=== PATIENT | female | born 1995 | race Hispanic/Latino ===

== ENCOUNTER 2018-03-08 11:07 | Emergency (ER) | payer OTHER | END 2018-03-08 12:16 | disposition home or self-care (01) | LOC: ERS 11:07 | DX: O9A.212 Injury, poisoning and certain other consequences of external causes complicating pregnancy, second trimester (principal); S30.1XXA Contusion of abdominal wall, initial encounter; Z3A.19 19 weeks gestation of pregnancy; X50.0XXA Overexertion from strenuous movement or load, initial encounter; Y92.239 Unspecified place in hospital as the place of occurrence of the external cause | CPT/HCPCS: 99283 ==

== ENCOUNTER 2018-06-27 15:23 | Inpatient (IN) | payer OTHER ==
[~2018-06-27 15:23] MED LIST: Bupivacaine/Epinephrine 0.25% 30 ML VIAL ONE
[2018-06-27 15:55] VITALS: BMI 36.0
[2018-06-27 16:09] LABS: #Basophils 0.1 thou/uL (0.0-0.2); #Eosinphils 0.1 thou/uL (0.0-0.7); #Lymphocytes 3.4 thou/uL (1.20-3.40); #Monocytes 0.7 thou/uL (0.11-0.59); #Neutrophils 7.3 thou/uL (1.40-6.50); %Basophils 0.8 % (0.0-1.0); %Eosinophils 1.3 % (0.0-10.0); %Lymphocytes 29.4 % (21.0-51.0); %Monocytes 6.1 % (0.0-10.0); %Neutrophils 62.5 % (42.0-75.0); Hemoglobin 12.6 g/dL (12.0-16.0); Mean Corpuscular HGB CONC 33.5 g/dL (32.0-36.0); Mean Corpuscular Hemoglobin 29.6 pg (27.0-31.0); Mean Corpuscular Volume 88.4 fL (78.0-98.0); Mean Platelet Volume 8.9 fL (7.4-10.4); Platelet Count 298 thou/uL (130-400); RBC Distribution Width 12.6 % (11.5-14.5); Red Blood Cell (RBC) Count 4.24 mill/uL (4.20-5.40); White Blood Cell (WBC) Count 11.6 thou/uL (4.8-10.8)
[2018-06-27 16:19] LABS: Amphetamine Not Detected (NotDetected); Barbiturates Screen Not Detected (NotDetected); Benzodiazepine Screen Not Detected (NotDetected); Cocaine Metabolite Screen Not Detected (NotDetected); Medtox Control Line Valid? VALID (VALID); Medtox Reader # READER 1; Methadone Not Detected (NotDetected); Methamphetamine Not Detected (NotDetected); Opiate Screen Not Detected (NotDetected); Oxycodone Screen Not Detected (NotDetected); Phencyclidine (PCP) Not Detected (NotDetected); THC/Cannabinoid Screen Not Detected (NotDetected); Tricyclic Screen Not Detected (NotDetected)
[2018-06-27 16:24] LABS: AST (SGOT) 116 U/L (5-34); Anion Gap 15 mmol/L (10-20); BUN (Urea Nitrogen) 10 mg/dL (7.0-18.7); Calc. Creatinine Clearance 162 mL/min (70-130); Calcium 9.6 mg/dL (7.8-10.44); Carbon Dioxide 17 mmol/L (22-29); Chloride 109 mmol/L (98-107); Estimated GFR-MDRD Greater than 90; Glucose 70 mg/dL (70-105); Potassium 4.3 mmol/L (3.5-5.1); Sodium 137 mmol/L (136-145)
[2018-06-27 16:27] LABS: Creatinine, Urine 29.7 mg/dL (47-110)
[2018-06-27] MEDS ORDERED: NS / Oxytocin 40 units/1000ml 1,000 ML IV PRN (17:24)
[2018-06-27] MEDS ORDERED: Zolpidem Tartrate 5 MG TAB PO PRN (17:24)
[2018-06-27] MEDS ORDERED: Lidocaine 1% (PF) 30 ML VIAL SC PRN (17:24)
[2018-06-27] MEDS ORDERED: Ondansetron HCl/PF 4 MG/2 ML Vial IVP PRN (17:24)
[2018-06-27] MEDS ORDERED: Promethazine HCl 25 MG/ML VIAL IM PRN (17:24)
[2018-06-27] MEDS ORDERED: Calcium Gluc 4.6 MEQ/10 ML (100 MG/ML) SLOW IVP PRN (17:24)
--- NOTE | 2018-06-27 17:37 | HP ---
DATE OF ADMISSION: 06/27/2018 REASON FOR ADMISSION: Preeclampsia at 35 weeks' gestation. HISTORY OF PRESENT ILLNESS: Ms. Thomas is a 22-year-old 2, para 1 with an EDC of 07/31/2018 placing her at 35 weeks and 1 day. She was noted to have blood pressures to 150s/100s at Dr. Mathis' s office. She was sent over here for further evaluation. Laboratory evaluation reveals elevated AST at 116 and a protein to creatinine ratio of greater than 0.9. Blood pressures are much better than were noted in the office on presentation to labor and delivery. OBSTETRICS AND GYNECOLOGIC HISTORY: x1 with induction for preeclampsia. Blood type O positive, antibody negative, Pap negative, rubella immune, VDRL nonreactive. Hepatitis B and GC chlamydia nega tive. 50-gram within normal limits. Group B strep pending. PAST MEDICAL HISTORY: Denies. PAST SURGICAL HISTORY: Denies. ALLERGIES: Denies. MEDICATIONS: vitamins. SOCIAL HISTORY: Denies tobacco, alcohol, or IV drug abuse. FAMILY HISTORY: Noncontributory. REVIEW OF SYSTEMS: Noncontributory. PHYSICAL EXAMINATION: GENERAL: female in no acute distress. Denies headache, blurred vision. VITAL SIGNS: Current blood pressure is 128/82, pulse 85, respirations 18, temperature 97.6. HEENT: Within normal limits. LUNGS: Clear to auscultation bilaterally. HEART: Regular rhythm. BREASTS: No masses bilaterally. ABDOMEN: Soft, nontender. Fundal height 35 cm. FHTs 130s to 140s. PELVIC: Vulva without lesions. Vagina without discharge. Cervix is 1 to 2, 50, -2, cephalic by Dr. Mathis in the office. EXTREMITIES: The patient has 1+ edema, 1+ DTRs. No clonus. No CVA tenderness. LABORATORY STUDIES: Hematocrit is 29.6%, platelet count 298. Creatinine is 0.76, AST is 116, random urine protein is 28, urine creatinine is 29.7. Urine drug screen is negative. IMPRESSION: 35 weeks' gestation with elevated blood pressures in the office, now improved on diaz re st, but with severe criteria by liver enzyme assay. PLAN: 1. Admission. 2. Betamethasone secondary to current ACOG recommendations and 35.1 weeks' gestation. 3. Repeat AST, base met, and hemogram in approximately 12 hours. 4. Anticipate induction of labor at 48 hours post-betamethasone or earlier if blood pressures or wor sening laboratory indices indicate worsening severe preeclampsia worrisome for maternal or morb idity. Care plan discussed with Dr. Mathis.
[2018-06-27] MEDS: Betamet Acet/Betamet Na Ph 30 MG/5 ML VIAL IM SCH (17:42)
[2018-06-27 18:23] LABS: HBSAg Index 0.18 S/CO (0-0.99); Hep B Surf Ag Non-Reactive S/CO (NonReactive); Syphilis Antibody Nonreactive (Nonreactive); Syphilis Antibody Index 0.05 S/CO (<1.00 Non-Reactive)
[2018-06-28] MEDS ORDERED: Calcium Carbonate 500 MG ChewTAB PO PRN (00:49)
[2018-06-28 05:44] LABS: Hemoglobin 12.1 g/dL (12.0-16.0); Mean Corpuscular HGB CONC 33.4 g/dL (32.0-36.0); Mean Corpuscular Hemoglobin 29.4 pg (27.0-31.0); Mean Platelet Volume 8.9 fL (7.4-10.4); Platelet Count 303 thou/uL (130-400); RBC Distribution Width 12.5 % (11.5-14.5); Red Blood Cell (RBC) Count 4.11 mill/uL (4.20-5.40); White Blood Cell (WBC) Count 14.2 thou/uL (4.8-10.8)
--- NOTE | 2018-06-28 07:54 | PDOC.EVN ---
Event Note - Event Note Event Note: S:No PIH symptoms. Baby is active. Discussed indication for delivery due to increasing AST. O:128-137/79-90 FHT'140 ABD soft/non tender A/P:22 y/o at 35weeks and 2 days. AST increasing confirming severe criteria. Has received one dose of betamethasone and due second this afternoon. Will transfer to L&D for cytotec induction.
[2018-06-28] MEDS ORDERED: Carboprost 250 MCG/ML AMP IM SCH (07:58)
[2018-06-28] MEDS ORDERED: Methylergonovine 0.2 MG/ML VIAL IM PRN (07:58)
[2018-06-28] MEDS ORDERED: Calcium Gluc 4.6 MEQ/10 ML (100 MG/ML) SLOW IVP PRN (07:58)
[2018-06-28] MEDS ORDERED: Acetaminophen/Codeine 30-300mg Tablet PO PRN ×2 (07:58)
[2018-06-28] MEDS ORDERED: NS / Oxytocin 40 units/1000ml 1,000 ML IV PRN (07:58)
[2018-06-28] MEDS ORDERED: Lidocaine 1% (PF) 30 ML VIAL SC PRN (07:58)
[2018-06-28] MEDS ORDERED: NS w/ Oxytocin 10 units 500 ML IV SCH (08:00)
[2018-06-28] MEDS ORDERED: Penicillin G Potassium 5 MILL.UNITS in Sodium Chloride 0.9% 100 ML IVPB SCH (08:00)
[2018-06-28] MEDS ORDERED: Prenatal Vitamin 1 TAB PO SCH (09:00)
[2018-06-28] MEDS: Misoprostol 100 MCG TAB VAG SCH (09:28)
[2018-06-28] MEDS: Penicillin G 2.5 MILL.units 2.5 MILL.UNITS in Premix Bag 1 BAG IVPB SCH (13:40)
[2018-06-28] MEDS ORDERED: Fentanyl 4 mcg/Bup 0.1% Cadd 100 ML ONE (15:05)
[2018-06-28] MEDS: Lactated Ringer's 1,000 ML IV SCH (15:11)
[2018-06-28] MEDS ORDERED: ePHEDrine/0.9% NaCl/PF SYRINGE 50 mg/10 ml SLOW IVP PRN (15:52)
[2018-06-28] MEDS ORDERED: diphenhydrAMINE 50 MG/ML VIAL IVP PRN ×2 (15:52→18:23)
[2018-06-28] MEDS ORDERED: Eucerin (Mineral Oil/Petrolatum,White) 30 gm Jar TOP PRN (15:52)
[2018-06-28] MEDS ORDERED: Ondansetron HCl/PF 4 MG/2 ML Vial IVP PRN ×3 (15:52→18:25)
[2018-06-28] MEDS ORDERED: Promethazine HCl 25 MG/ML VIAL IM PRN ×2 (15:52→18:23)
[2018-06-28] MEDS ORDERED: Naloxone HCl 0.4 mg/ml Vial IVP PRN ×2 (15:52)
[2018-06-28] MEDS ORDERED: Acetaminophen 325 MG TAB PO PRN (15:52)
[2018-06-28] MEDS ORDERED: Lactated Ringer's 500 ML IV PRN (15:52)
[2018-06-28] MEDS ORDERED: Fentanyl 4 mcg/Bupivacaine 0.1% Cassette 100 ML EPIDURAL SCH (16:00)
[2018-06-28] MEDS ORDERED: Communication Order-Pharmacy FS SCH ×2 (16:00→18:30)
[2018-06-28] MEDS ORDERED: Ondansetron HCl/PF 4 MG/2 ML Vial ONE ×2 (16:40→17:03)
[2018-06-28] MEDS ORDERED: PROPOFOL 200 MG/20 ML VIAL ONE (16:40)
[2018-06-28] MEDS ORDERED: ePHEDrine/0.9% NaCl/PF SYRINGE 50 mg/10 ml ONE ×2 (16:40→17:03)
[2018-06-28] MEDS ORDERED: PHENYLEPHRINE-NS 100 MCG/ML 10 ML SYRINGE ONE ×2 (16:40→17:03)
[2018-06-28] MEDS ORDERED: Succinylcholine Chloride 20 MG/ML 10 ml SYRINGE FS ONE ×2 (16:40→17:38)
[2018-06-28] MEDS ORDERED: Glycopyrrolate 0.2 MG/ML 5 ML SYRINGE ONE ×2 (16:40→18:08)
[2018-06-28] MEDS ORDERED: Esmolol 100 MG/10 ML VIAL ONE ×2 (16:40→18:04)
[2018-06-28] MEDS ORDERED: CEFAZOLIN/Water 2 GM/20 ML SYRINGE ONE (16:45)
[2018-06-28] MEDS ORDERED: Bicitra 30 ML UDCUP ONE (16:45)
[2018-06-28] MEDS ORDERED: Bupivacaine 0.5% 10 ML VIAL ONE (16:52)
[2018-06-28] MEDS ORDERED: Bicitra 30 ML UDCUP PO SCH (17:00)
[2018-06-28] MEDS ORDERED: CEFAZOLIN/Water 2 GM/20 ML SYRINGE SLOW IVP SCH (17:00)
[2018-06-28] MEDS ORDERED: Ketorolac Tromethamine 30 MG/ML VIAL ONE (17:03)
[2018-06-28] MEDS ORDERED: Calcium Gluconate 4.6 MEQ in Sodium Chloride 0.9% 100 ML IVPB PRN (17:17)
[2018-06-28] MEDS ORDERED: Adacel (T-DAP) 0.5 ML VIAL IM ONE (17:18)
[2018-06-28] MEDS ORDERED: Lanolin Ointment 7 GM TUBE TOP PRN (17:18)
[2018-06-28] MEDS ORDERED: diphenhydrAMINE 25 MG CAP PO PRN ×2 (17:18→18:23)
[2018-06-28] MEDS ORDERED: Misoprostol 200 MCG TAB PR PRN (17:18)
[2018-06-28] MEDS ORDERED: Simethicone Chewable 80 MG TAB PO PRN (17:18)
[2018-06-28] MEDS ORDERED: Meperidine HCl/PF 25 MG/ML VIAL IM PRN (17:18)
[2018-06-28] MEDS ORDERED: traMADol HCl 50 MG TAB PO PRN ×2 (17:23)
[2018-06-28] MEDS ORDERED: Magnesium Sulfate 20 GM/WATER 500 ML BAG IVPB SCH (17:30)
[2018-06-28] MEDS ORDERED: Lidocaine 2% 10 ML INJ ONE (17:38)
[2018-06-28] MEDS ORDERED: PROPOFOL 20 ML ONE ×2 (17:38→18:05)
[2018-06-28] MEDS ORDERED: Fentanyl 250 MCG/5 ML VIAL ONE (17:40)
[2018-06-28] MEDS ORDERED: Midazolam HCl 2 mg/2 ml Vial ONE (17:47)
[2018-06-28] MEDS ORDERED: Oxytocin 10 UNITS/ML VIAL ONE (17:48)
[2018-06-28] MEDS ORDERED: Fentanyl 100 MCG/2 ML VIAL ONE (17:55)
[2018-06-28] MEDS ORDERED: Zolpidem Tartrate 5 MG TAB PO PRN (18:23)
[2018-06-28] MEDS ORDERED: Naloxone HCl 0.4 mg/ml Vial IV PRN (18:23)
[2018-06-28] MEDS ORDERED: diphenhydrAMINE 50 MG/ML VIAL IM PRN (18:23)
[2018-06-28] MEDS ORDERED: fentaNYL Citrate/PF 2,000 MCG in Sodium Chloride 0.9% 60 ML IV PRN (18:23)
[2018-06-28] MEDS ORDERED: L&D-Morphine 4 MG/ML VIAL SLOW IVP PRN (18:25)
[2018-06-28] MEDS ORDERED: HYDROmorphone 2 MG/ML VIAL SLOW IVP PRN (18:25)
[2018-06-28] MEDS ORDERED: Meperidine HCl/PF 25 MG/ML VIAL SLOW IVP PRN (18:25)
[2018-06-28] MEDS ORDERED: Ketorolac Tromethamine 30 MG/ML VIAL IVP SCH (18:30)
--- NOTE | 2018-06-28 18:56 | CON ---
DATE OF CONSULTATION: 06/28/2018 CONSULTATION This is a patient of Dr. Belinda Mathis. In brief, I was asked to be on standby for this patient's . The patient was being induced [facility] and Dr. Mathis found that the baby's position was transverse oblique. As she was 3-4 cm dilated, the plan by Dr. Mathis was to proceed with a primary . Dr. Shayy Loja with Family Medicine program and Dr. Mathis were the surgeons on this case. I was scrubbed and in the rosaura m, but I was there really as a backup for delivery in case assistance was needed. Dr. Mathis p roceeded to deliver the child by idpesh breech extraction. I had a very minimal role in this procedur e. I assisted with exposure during the breech extraction briefly. For full details, please tu rn to the notes by Dr. Loja and Dr. Mathis.
[2018-06-29] MEDS: Lactated Ringer's 1,000 ML IV SCH ×2 (02:59→15:47)
[2018-06-29] MEDS: Magnesium Sulfate 20 gm/500 ml 20 GM/500 ML BAG IVPB SCH ×2 (03:41→14:29)
[2018-06-29 05:23] LABS: Hemoglobin 9.4 g/dL (12.0-16.0); Mean Corpuscular HGB CONC 33.5 g/dL (32.0-36.0); Mean Corpuscular Hemoglobin 29.6 pg (27.0-31.0); Mean Corpuscular Volume 88.3 fL (78.0-98.0); Mean Platelet Volume 8.9 fL (7.4-10.4); Platelet Count 271 thou/uL (130-400); RBC Distribution Width 12.6 % (11.5-14.5); Red Blood Cell (RBC) Count 3.19 mill/uL (4.20-5.40); White Blood Cell (WBC) Count 18.2 thou/uL (4.8-10.8)
[2018-06-29 05:42] LABS: ALT (SGPT) 171 U/L (8-55); AST (SGOT) 145 U/L (5-34); Albumin 2.6 g/dL (3.5-5.0); Alkaline Phosphatase 123 U/L (40-150); Anion Gap 13 mmol/L (10-20); BUN (Urea Nitrogen) 13 mg/dL (7.0-18.7); Bilirubin, Total 0.5 mg/dL (0.2-1.2); Calc. Creatinine Clearance 160 mL/min (70-130); Calcium 7.1 mg/dL (7.8-10.44); Carbon Dioxide 16 mmol/L (22-29); Chloride 104 mmol/L (98-107); Estimated GFR-MDRD Greater than 90; Globulin 2.9 g/dL (2.4-3.5); Glucose 100 mg/dL (70-105); Potassium 4.1 mmol/L (3.5-5.1); Protein, Total 5.5 g/dL (6.0-8.3); Sodium 129 mmol/L (136-145)
--- NOTE | 2018-06-29 08:07 | PDOC.EVN ---
Event Note - Event Note Event Note: PPD/POD 1 Still on Mag So4 for isolated LFT elevation, now improving. At MD hand-off, discussed eval for other etiologies: ordered hep panal and RUQ sono for comprehensive eval. Off mag today anticipated after 24 hrs (mid afternoon)
[2018-06-29 08:58] LABS: HBCM Index 0.07 S/CO (0-0.79); HBSAg Index 0.19 S/CO (0-0.99); Hep A IgM AB Non-Reactive (NonReactive); Hep A IgM S/CO 0.15 S/CO (0-0.79); Hep B Surf Ag Non-Reactive S/CO (NonReactive); Hep C IgG Ab Non-Reactive (NonReactive); Hep C Index 0.08 S/CO (0-0.79); Hepatitis B Core IGM Abs Non-Reactive (NonReactive)
[2018-06-29] MEDS ORDERED: Prenatal Vitamin 1 TAB PO SCH (09:00)
--- NOTE | 2018-06-29 11:31 | ULT ---
RIGHT UPPER QUADRANT ULTRASOUND: Date: 06/29/18 INDICATION: elevated LFTs. FINDINGS: The liver measured 18.4 cm. No focal hepatic lesion is evident. Gallbladder normal appearing. No sonographic Bruno's sign reported. Common bile duct measures 3.0 mm. Pancreas was poorly evaluated due to overlying bowel gas. The right kidney measures 10.9 x 4.4 x 5.7 cm. IMPRESSION: No acute sonographic abnormalities. POS: TRUDY
--- NOTE | 2018-06-29 13:22 | OP ---
DATE OF PROCEDURE: 06/28/2018 PREOPERATIVE DIAGNOSES: 1. A 22-year-old female, G2, P1 at 35 to 36 weeks' gestation, but severe preeclampsia based on elevated liver enzymes. 2. Oblique lie with hand presentation in labor. POSTOPERATIVE DIAGNOSES: 1. A 22-year-old female, G2, P1 at 35 to 36 weeks' gestation, but severe preeclampsia based on elevated liver enzymes. 2. Oblique lie with hand presentation in labor. PROCEDURE PERFORMED: Primary low transverse section without extension. SURGEON: Belinda Mathis M.D. PLASTIC CARD GRADER CARDROOM: Sivakumar Torres, second year Family Practice Resident. ANESTHESIA: Epidural and general endotracheal anesthesia. QUANTITATIVE BLOOD LOSS: 1025 mL. COMPLICATIONS: None. COUNTS: Correct x2. ANTIBIOTICS: Two grams Ancef on-call to OR. FINDINGS: 1. Male infant with oblique presentation with the cephalic, noted in the right side of mother's pelv is with back up and arm presentation noted and encountered at the hysterotomy incision. Delivered br eech with breech extraction. 2. Normal appearing fallopian tubes, ovaries, and uterus. 3. A male in oblique lie with head in right lower quadrant of the abdomen back up with arm pr esentation. Apgars were initially 1 and 7 and weight was 2560 grams. DISPOSITION: Recovery, then to room, then to LICU for magnesium sulfate prophylaxis. DESCRIPTION OF OPERATIVE PROCEDURE: The patient previously received informed consent and was taken b ack to the operating room. She was placed in the supine position and prepped and draped in usual julieta rile fashion after epidural anesthesia had been dosed. It was noted that it was inadequate and there fore, general endotracheal anesthetic agent was utilized. A Pfannenstiel incision was then made in t he lower abdomen and was carried down the fascia. Fascia was nicked in midline. Fascial incision wa s extended bilaterally using curved Huffman scissors. The rectus fascia was dissected superiorly and in feriorly off the rectus muscle bellies and rectus muscle bellies were divided in midline, and periton eal cavity was entered. A large Que O retractor was then placed. A bladder flap was created. A 2 cm hysterotomy incision was made in the lower uterine segment and this was extended via finger frac tionation. We kept the amniotic bag in situ and explored over the space between the uterus and the a mniotic bag, located the head, tried to manipulate this more towards cephalad. The amniotic ba g was then ruptured and initially a hand was grasped and this was replaced back into the uterus. I s wept over the head down the back of the baby over the rump, and then grabbed the leg and then p ulled the foot out of the hysterotomy incision, which the next leg followed easily. A twisting , turning maneuver at the sacrum and the buttocks area was carried out to deliver the arms easily justyna ng with the maneuver keeping the head flexed by my chef's assistant with easy delivery of the he ad. The mouth and nares and the baby were suctioned, and the cord was doubly clamped and cut and martin ded to the taper printed circuit layout in attendance. Usual cord blood was obtained. Placenta was manually extrac victoria. Uterus was externalized. Uterus curetted of any remaining placental fragments with a dry lapar otomy sponge. Hysterotomy incision was closed with #1 Monocryl suture in running locking fashion. G ood hemostasis was confirmed. The uterus was then replaced in the abdomen. Again, hemostasis of the hysterotomy site was confirmed. Pelvis irrigated and suctioned. The rectus muscle bellies were not ed to be hemostatic. Hysterotomy incision was hemostatic. The fascia was then closed with 0 PDS sut ure x2 in running continuous fashion. Subcutaneous tissue was noted be hemostatic prior to skin appr oximation with irina. Surgery was terminated. There were no anesthetic or surgical complications.
[2018-06-29] MEDS: Betamet Acet/Betamet Na Ph 30 MG/5 ML VIAL IM SCH (17:00)
[2018-06-29] MEDS: Docusate Calcium (SURFAK) 240 MG CAP PO SCH ×2 (17:00→23:11)
[2018-06-29] MEDS: Ketorolac Tromethamine 30 MG/ML VIAL IVP SCH (17:01)
[2018-06-29] MEDS ORDERED: Ondansetron HCl/PF 4 MG/2 ML Vial IVP PRN (21:27)
[2018-06-29] MEDS ORDERED: Bisacodyl 10 MG SUPP PR PRN (21:27)
[2018-06-29] MEDS ORDERED: HYDROcodone/Acetaminophen 5/325 mg Tablet PO PRN (21:27)
[2018-06-29] MEDS ORDERED: Lanolin Ointment 7 GM TUBE TOP PRN (21:27)
[2018-06-29] MEDS ORDERED: Docusate Calcium (SURFAK) 240 MG CAP PO SCH (21:45)
[2018-06-29] MEDS: Ibuprofen 800 MG TAB PO SCH (23:10)
[2018-06-29] MEDS: HYDROcodone/Acetaminophen 5/325 mg Tablet PO PRN (23:31)
[2018-06-29] MEDS: Simethicone Chewable 80 MG TAB PO PRN (23:31)
[2018-06-30] MEDS: HYDROcodone/Acetaminophen 5/325 mg Tablet PO PRN ×3 (04:17→17:07)
[2018-06-30] MEDS: Simethicone Chewable 80 MG TAB PO PRN ×2 (05:59→21:31)
[2018-06-30] MEDS: Ibuprofen 800 MG TAB PO SCH ×3 (05:59→21:31)
[2018-06-30] MEDS: Docusate Calcium (SURFAK) 240 MG CAP PO SCH ×4 (07:43→21:31)
[2018-06-30] MEDS: Ketorolac Tromethamine 30 MG/ML VIAL IVP SCH ×2 (07:43→07:46)
[2018-06-30] MEDS: Lactated Ringer's 1,000 ML IV SCH (07:44)
[2018-06-30] MEDS: Penicillin G 2.5 MILL.units 2.5 MILL.UNITS in Premix Bag 1 BAG IVPB SCH ×3 (07:46→08:32)
[2018-06-30] MEDS: Misoprostol 100 MCG TAB VAG SCH ×3 (07:47→08:32)
--- NOTE | 2018-06-30 08:19 | PRG ---
DATE OF SERVICE: 06/30/2018 PRIMARY OB: Dr. Belinda Mathis HISTORY OF PRESENT ILLNESS: The patient is a 22-year-old who is now postop day #2, status post a brook thomas for malpresentation and preeclampsia. The patient is now postop day #2 status post ma gnesium for seizure prophylaxis and yesterday was sent to the floor for continued care. H er course since yesterday has been uncomplicated. Blood pressures have remained in the normal range. This morning reports that she is tolerating p.o., voiding on her own, having decreased lochia and g ood pain control. PHYSICAL EXAMINATION: VITAL SIGNS: Blood pressure 127/68, temperature 98.5, pulse of 95, respiratory rate of 18, satting 9 8% on room air. GENERAL: She appears to be in no acute distress. She is alert and oriented, cooperative and pleasan t to interact with. HEENT: Head is normocephalic, atraumatic. CHEST: Clear to auscultation bilaterally. ABDOMEN: Fundus is firm. Incision is clean, dry, and intact with irina. EXTREMITIES: Nontender, nonedematous. ASSESSMENT AND PLAN: The patient is a 22-year-old female postop day #2, status post a primary C-sect ion for malpresentation and preeclampsia with severe features. The patient is recovering well. We w ill continue postoperative care today. Anticipate discharge tomorrow.
[2018-06-30] MEDS ORDERED: Adacel (T-DAP) 0.5 ML VIAL IM ONE (09:00)
[2018-06-30] MEDS: Prenatal Vitamin 1 TAB PO SCH (09:33)
[2018-07-01] MEDS: HYDROcodone/Acetaminophen 5/325 mg Tablet PO PRN ×3 (00:14→15:00)
[2018-07-01] MEDS: Ibuprofen 800 MG TAB PO SCH ×2 (06:19→15:00)
--- NOTE | 2018-07-01 06:28 | PDOC.PP ---
Post Progress Note Post Day #: 3 Subjective: States had a DEL CASTILLO yesterday (states migraine HX), but none today. Doroteo po and can ambulate. No photophobia. Passing gas. baby still in NICU for EGA PO intake tolerated: yes Flatus: yes Ambulation: yes Vital Signs (12 hours) Temp Pulse Resp BP BP Pulse Ox 07/01/18 04:00 98.0 F 89 18 130/63 07/01/18 00:08 97.6 F 96 20 115/60 06/30/18 19:53 98.9 F 100 20 130/69 98 Weight Weight 197 lb - Physical Examination General: NAD Cardiovascular: no m/r/g Respiratory: clear to auscultation bilaterally Abdominal: + bowel sounds, lochia, no distention Extremities: negative homans (B) Skin: CS incision dry & intact (irina in place) Neurological: no gross focal deficits Psychiatric: A&Ox3, normal affect Result Diagrams: 06/29/18 05:11 06/29/18 05:11 Additional Labs: Post Labs Blood Type O POSITIVE 06/27/18 17:18 Hep Bs Antigen Non-Reactive S/CO (NonReactive) 06/27/18 17:35 (1) delivery delivered Code(s): O82 - ENCOUNTER FOR DELIVERY WITHOUT INDICATION Status: Acute (2) Elevated liver enzymes Code(s): R74.8 - ABNORMAL LEVELS OF OTHER SERUM ENZYMES Status: Acute - Assessment/Plan POD 3 s/p primary CS with HX elevated LFTs as isolated foindings, s/p MgSo4 for presumed PIH effect. BPs have been normal. Plan: 1. POD 3 today: we will plan on noon formal discharge and then courtesy stay (B& B) as baby still in NICU 2. Last LFTs were downward trending. I have ordered another set today to recheck. Hep panel was negative, RUQ sono was neg 3. BPs wnl 4. Irina out Wednesday next week 5. Home with motrin prn
--- NOTE | 2018-07-01 06:37 | PDOC.EVN ---
Event Note - Event Note Event Note: DISCHARGE NOTE Admission date: 06/27/18 Discharge date: 07/01/18 Principle procedure: Primary LTCS Other procedure: Right upper quadrant ultrasound Other diagnosis: elevated Liver Function tests, NOS COURSE: In brief, the patient was admitted by Dr Mathis and was undergoing a trial of induction with cytotec for abnormal LFTs presumed due to preeclampsia. At 3-4cm , position was noted to have changed from cephalic to oblique. She was delivered by primary CS vis breech after arm presentation through hysterotomy was corrected. , was placed on MgSo4 empirically due to LFT abnormality. LFTs down-trending. Repeat LFTs ordered on day of discharge. No evidence of ileus on day of discharge. Incision C/D/I with irina. Planned discharge on POD 3 with bed and breakfast scheduled. Irina to be removed Wednesday after discharge. Baby was in NICU due to EGA 35 weeks
[2018-07-01 07:42] LABS: ALT (SGPT) 117 U/L (8-55); AST (SGOT) 120 U/L (5-34); Albumin 2.9 g/dL (3.5-5.0); Alkaline Phosphatase 118 U/L (40-150); Bilirubin, Direct 0.2 mg/dL (0.1-0.3); Bilirubin, Total 0.5 mg/dL (0.2-1.2); Protein, Total 5.8 g/dL (6.0-8.3)
--- NOTE | 2018-07-01 07:49 | PDOC.EVN ---
Event Note - Event Note Event Note: Lab check: AM LFTs are down-trending.
[2018-07-01] MEDS: Docusate Calcium (SURFAK) 240 MG CAP PO SCH (09:07)
[2018-07-01] MEDS: Prenatal Vitamin 1 TAB PO SCH (09:08)
[2018-07-01] MEDS: Simethicone Chewable 80 MG TAB PO PRN (09:09)
[2018-07-01 12:49] VITALS: BP 120/61; TEMP 98.5
== END 2018-07-01 16:20 | disposition home or self-care (01) | DRG 787 ==
LOC: L&D/OP 15:23 → L&D 17:33 → 3SW 21:12 → L&D 06-28 08:20 → 3SW 06-29 21:00
PROVIDERS: ADMIT Obstetrics & Gynecology; ATTEND Obstetrics & Gynecology
PROC: 10D00Z1 Extraction of Products of Conception, Low, Open Approach (ICD-10-PCS; principal; 2018-06-28)
PROC: 3E033VJ Introduction of Other Hormone into Peripheral Vein, Percutaneous Approach (ICD-10-PCS; 2018-06-28)
DX: O14.14 Severe pre-eclampsia complicating childbirth (principal); O98.82 Other maternal infectious and parasitic diseases complicating childbirth; Z3A.35 35 weeks gestation of pregnancy; Z37.0 Single live birth; O32.1XX0 Maternal care for breech presentation, not applicable or unspecified; B95.1 Streptococcus, group B, as the cause of diseases classified elsewhere; R79.89 Other specified abnormal findings of blood chemistry; O75.89 Other specified complications of labor and delivery
CPT/HCPCS: 36415; 51702; 59025; 76705; 76815; 80048; 80053; 80074; 80076; 80306; 81003; 82570; 83735; 84156; 84450; 85025; 85027; 86780; 86850; 86900; 86901; 87081; 87340; 88307; 90715; 99285; J0702; J1885; J2250; J2405; J2540; J2590; J2704; J3010; J3475; J3490; J7050

== ENCOUNTER 2018-11-30 08:49 | Emergency (ER) | payer OTHER ==
[2018-11-30 10:11] LABS: #Basophils 0.1 thou/uL (0.0-0.2); #Eosinphils 0.1 thou/uL (0.0-0.7); #Monocytes 0.5 thou/uL (0.11-0.59); #Neutrophils 1.8 thou/uL (1.40-6.50); %Basophils 1.3 % (0.0-1.0); %Eosinophils 1.3 % (0.0-10.0); %Lymphocytes 45.6 % (21.0-51.0); %Monocytes 10.6 % (0.0-10.0); %Neutrophils 41.2 % (42.0-75.0); Hemoglobin 12.8 g/dL (12.0-16.0); Mean Corpuscular HGB CONC 33.2 g/dL (32.0-36.0); Mean Corpuscular Hemoglobin 27.3 pg (27.0-31.0); Mean Corpuscular Volume 82.2 fL (78.0-98.0); Mean Platelet Volume 7.9 fL (7.4-10.4); Platelet Count 369 thou/uL (130-400); RBC Distribution Width 13.9 % (11.5-14.5); Red Blood Cell (RBC) Count 4.67 mill/uL (4.20-5.40); White Blood Cell (WBC) Count 4.4 thou/uL (4.8-10.8)
[2018-11-30 10:18] LABS: Bilirubin Small (Negative); Blood, Urine Negative (Negative); Glucose, Urine (Dipstick) Negative (Negative); Leukocyte Moderate (Negative); Nitrite Negative (Negative); Protein, Urine (Dipstick) Trace mg/dL (Neg-Trace); Urobilinogen 0.2 mg/dL (0.2-1.0)
[2018-11-30 10:21] LABS: Clarity CLEAR (Clear)
[2018-11-30 10:22] LABS: Specific Gravity, Urine 1.025 (1.002-1.036)
[2018-11-30 10:23] LABS: Pregnancy Test - Urine (BHCG) Negative (Negative); Pregu Control Background? CLEAR/WHITE (CLR/WHITE); Pregu Control Bar Appear? YES (CONTROL BAR); Specific Gravity 1.025 (1.002-1.036)
[2018-11-30 10:24] LABS: ALT (SGPT) 46 U/L (8-55); AST (SGOT) 38 U/L (5-34); Albumin 4.4 g/dL (3.5-5.0); Alkaline Phosphatase 83 U/L (40-150); Anion Gap 13 mmol/L (10-20); BUN (Urea Nitrogen) 10 mg/dL (7.0-18.7); Bilirubin, Total 0.4 mg/dL (0.2-1.2); Calc. Creatinine Clearance 0 mL/min (70-130); Calcium 9.3 mg/dL (7.8-10.44); Carbon Dioxide 24 mmol/L (22-29); Chloride 104 mmol/L (98-107); Estimated GFR-MDRD Greater than 90; Globulin 3.5 g/dL (2.4-3.5); Glucose 99 mg/dL (70-105); Lipase 28 U/L (8-78); Potassium 3.7 mmol/L (3.5-5.1); Protein, Total 7.9 g/dL (6.0-8.3); Sodium 137 mmol/L (136-145)
[2018-11-30 10:25] LABS: Bacteria/HPF 2+ HPF (None Seen); Hyaline Casts/LPF NONE SEEN LPF (0-3 Hyaline); RBC/HPF 0-3 HPF (0-3)
== END 2018-11-30 11:25 | disposition home or self-care (01) ==
LOC: ERS 08:49
DX: R10.33 Periumbilical pain (principal); N39.0 Urinary tract infection, site not specified; R19.7 Diarrhea, unspecified
CPT/HCPCS: 36415; 80053; 81003; 81015; 81025; 83690; 85025; 99284